=== PATIENT | female | born 1965 | race Caucasian/White ===

== ENCOUNTER 2017-01-19 09:33 | Emergency (ER) | payer BC ==
[2017-01-19] MEDS ORDERED: ACETAMINOPHEN 325 MG TAB PO ONE (09:58)
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
== END 2017-01-19 12:00 | disposition home or self-care (01) ==
LOC: ER 09:33
DX: S16.1XXA Strain of muscle, fascia and tendon at neck level, initial encounter (principal); R51 Headache; I10 Essential (primary) hypertension; V43.52XA Car driver injured in collision with other type car in traffic accident, initial encounter
CPT/HCPCS: 72050; 99283